=== PATIENT | male | born 1940 | race Caucasian/White ===

== ENCOUNTER → 2016-08-17 | Outpatient (CLI) | payer MEDICARE, BC ==
[2016-08-17 09:00] LABS: CH 30.7; HCT 43.6 % (39.0-53.0); HDW 2.62; MCHC 32.1 g/dL (31.0-37.0); MCV 93.4 fL (80.0-100.0); Mean Platelet Volume 7.8; RBC 4.68 m/uL (4.30-5.90); RDW 13.2 % (11.5-15.5); WBC 7.1 k/uL (3.8-10.6)
[2016-08-17 09:04] LABS: Appearance,Urine Clear (Clear); Bilirubin,Urine Negative (Negative); Glucose,Urine (UA) Negative (Negative); Ketones,Urine Negative (Negative); Leukocyte Esterase,Urine Negative (Negative); Nitrite,Urine Negative (Negative); Protein,Urine Trace (Negative); Specific Gravity,Urine 1.016 (1.001-1.035); UA Billing (MACRO vs. MICRO) CHEM; Urobilinogen,Urine <2.0 mg/dL (<2.0)
[2016-08-17 09:32] LABS: ALT 34 U/L (21-72); AST 26 U/L (17-59); Alkaline Phosphatase 103 U/L (38-126); Anion Gap 12 mmol/L; Blood Urea Nitrogen 23 mg/dL (9-20); Calcium 9.5 mg/dL (8.4-10.2); Carbon Dioxide 29 mmol/L (22-30); Chloride 105 mmol/L (98-107); Cholesterol 180 mg/dL (<200); Glucose 100 mg/dL (74-99); HDL Cholesterol 53 mg/dL (40-60); Non-African American GFR(MDRD) >60 (>60 ml/min/1.73 sqM); Potassium 4.8 mmol/L (3.5-5.1); Sodium 146 mmol/L (137-145); Total Bilirubin 0.9 mg/dL (0.2-1.3); Total Protein 7.6 g/dL (6.3-8.2); Triglycerides 81 mg/dL (<150)
== END | disposition home or self-care (01) ==
LOC: LABWHC1 08:31
PROVIDERS: ATTEND Internal Medicine
DX: C34.90 Malignant neoplasm of unspecified part of unspecified bronchus or lung (principal); C61 Malignant neoplasm of prostate; E78.5 Hyperlipidemia, unspecified
CPT/HCPCS: 36415; 80053; 80061; 81003; 85027

== ENCOUNTER 2016-08-30 08:42 | Day surgery (SDC) | payer MEDICARE, BC ==
[2016-08-24 11:13] VITALS: BMI 22.6
[~2016-08-30 08:42] MED LIST: LACTATED RINGERS 1,000 ML IV SCH; LIDOCAINE 1% 20 ML VIAL (10MG/ML) FOR IV START INTRADERMA PRN
[2016-08-30 09:29] VITALS: TEMP 97.5
[2016-08-30] MEDS ORDERED: LIDOCAINE 1% INJ 10MG/ML (20 ML MDV) ONE (09:42)
[2016-08-30] MEDS ORDERED: PROPOFOL 10 MG/ML 20 ML VIAL IV ONE (09:42)
--- NOTE | 2016-08-30 10:14 | P.PCN ---
Date of Procedure: 08/30/16 Procedure(s) Performed: Procedure: Total colonoscopy. Preoperative diagnosis screening for neoplasia. Postoperative diagnosis: Sigmoid diverticulosis with no evidence of acute diverticulitis, strictures, polyps or cancer. Preparation: HalfLytely prep. Sedation: Was provided by anesthesia. Brief clinical history: The patient is a 76-year-old male who is referred for this evaluation for screening for neoplasia age being his risk factor. He has history of lung cancer and prostate cancer. This is his first colonoscopy. He has no abdominal complaints, bleeding or anemia. Procedure: With the patient on his left lateral decubitus position and after informed consent and adequate sedation, the perianal area was inspected and it did not show any fissures or fistulas. There were no masses felt on digital rectal examination. The Olympus CFQ 160L video colonoscope was then inserted in the rectum in the usual fashion and advanced to the cecum. The preparation was poor especially in the sigmoid and left colon but I was able to clean thoroughly as I was withdrawing the endoscope. There was significant diverticulosis in the sigmoid but no evidence of acute diverticulitis or strictures. No polyps or tumors were seen. I retroflexed endoscope in the rectum before the endoscope was withdrawn. The patient tolerated the procedure well. Plan: The patient was reassured. He will follow up with you as planned. At his age I did not recommend further screening.
[2016-08-30 10:23] VITALS: RESP 18
[2016-08-30 10:40] VITALS: BP 162/77; PULSE 81
== END 2016-08-30 11:15 | disposition home or self-care (01) ==
LOC: ORWHC2ENDO 08:42
DX: Z12.11 Encounter for screening for malignant neoplasm of colon (principal); K57.30 Diverticulosis of large intestine without perforation or abscess without bleeding; E78.5 Hyperlipidemia, unspecified; Z85.46 Personal history of malignant neoplasm of prostate; Z85.118 Personal history of other malignant neoplasm of bronchus and lung; Z79.899 Other long term (current) drug therapy
CPT/HCPCS: J2001; J2704; G0121; 99153

== ENCOUNTER → 2016-12-22 | Outpatient (CLI) | payer MEDICARE, BC | END | disposition home or self-care (01) | LOC: LABWHC1 10:19 | PROVIDERS: ATTEND Urology | DX: C61 Malignant neoplasm of prostate (principal) | CPT/HCPCS: 36415; 84153 ==

== ENCOUNTER 2017-04-23 17:59 | Emergency (ER) | payer MEDICARE, BC ==
[2017-04-23 18:05] VITALS: BP 145/65; PULSE 74; RESP 16; TEMP 97.4
--- NOTE | 2017-04-23 18:36 | XR ---
EXAMINATION TYPE: XR hand complete LT DATE OF EXAM: 04/23/2017 CLINICAL HISTORY: Pain of the left hand TECHNIQUE: Frontal, lateral and oblique images of the left hand are obtained. COMPARISON: None. FINDINGS: There is no acute fracture/dislocation evident in the left hand. Small marginal osteophyte s, joint space narrowing and sclerosis are seen of the distal interphalangeal joints and first carpom etacarpal joint compatible with mild osteoarthropathy.. The overlying soft tissue appears unremarkab le. IMPRESSION: 1. There is no acute fracture or dislocation in the left hand. 2. Mild osteoarthropathy of the left hand.
--- NOTE | 2017-04-23 18:46 | ED ---
Upper Extremity HPI - General Chief Complaint: Extremity Injury, Upper Stated Complaint: LEFT HAND INJURY FROM FALL Time Seen by Provider: 04/23/17 18:08 Source: patient Mode of arrival: ambulatory Limitations: no limitations - History of Present Illness Initial Comments: 76-year-old male since emergency room complaining of left hand pain. Patient reports he was walking through the [place] and scaring is gone and his right hand and tripped over a stump and landed on his left hand. Patient states that he has some swelling over the second and third metacarpal. Fourth is range of motion in his fingers and wrist and hand. Denies any numbness or tingling. Denies any previous hand injuries. He reports he is right-handed. Denies any lacerations or abrasions of the hand.Patient denies any recent fever , chills, shortness of breath, chest pain, back pain, abdominal pain, nausea vomiting, numbness or tingling, dysuria or hematuria, constipation or diarrhea, headaches or visual changes, or any other current symptoms - Related Data Home Medications Medication Instructions Recorded Confirmed Doxazosin [Cardura] 4 mg PO HS 08/24/16 08/24/16 Multivitamin [Men's Multi-Vitamin] 1 each PO DAILY 08/24/16 08/24/16 Simvastatin [Zocor] 20 mg PO HS 08/24/16 08/24/16 Allergies Allergy/AdvReac Type Severity Reaction Status Date / Time No Known Allergies Allergy Verified 04/23/17 18:04 Review of Systems ROS Statement: Those systems with pertinent positive or pertinent negative responses have been documented in the HPI. ROS Other: All systems not noted in ROS Statement are negative. Past Medical History Past Medical History: Cancer, Hyperlipidemia, Prostate Disorder Additional Past Medical History / Comment(s): hx. lung cancer 1999-had chemo, hx. prostate cancer 2-3 yrs. ago-no tx. for- monitoring History of Any Multi-Drug Resistant Organisms: None Reported Past Surgical History: Appendectomy, Hernia Repair, Tonsillectomy Additional Past Surgical History / Comment(s): annalisa. inguinal hernia repair, left lobectomy, multiple skin grafts from huizar Past Anesthesia/Blood Transfusion Reactions: No Reported Reaction Past Psychological History: No Psychological Hx Reported Smoking Status: Former smoker Past Alcohol Use History: None Reported Past Drug Use History: None Reported - Past Family History Mother Family Medical History: No Reported History General Exam - General Exam Comments Initial Comments: well-appearing 76-year-old male. No distress. Limitations: no limitations General appearance: alert, in no apparent distress Head exam: Present: atraumatic, normocephalic, normal inspection Eye exam: Present: normal appearance, PERRL, EOMI. Absent: scleral icterus, conjunctival injection, periorbital swelling ENT exam: Present: normal exam, mucous membranes moist Neck exam: Present: normal inspection. Absent: tenderness, meningismus, lymphadenopathy Respiratory exam: Present: normal lung sounds bilaterally. Absent: respiratory distress, wheezes, rales, rhonchi, stridor Cardiovascular Exam: Present: regular rate, normal rhythm, normal heart sounds. Absent: systolic murmur, diastolic murmur, rubs, gallop, clicks GI/Abdominal exam: Present: soft, normal bowel sounds. Absent: distended, tenderness, guarding, rebound, rigid Extremities exam: Present: normal inspection, full ROM, normal capillary refill , other (minor swelling over left hand over 2-4 metacarpals. Full range of motion of fingers. ). Absent: tenderness, pedal edema, joint swelling, calf tenderness Back exam: Present: normal inspection Neurological exam: Present: alert, oriented X3, CN II-XII intact Psychiatric exam: Present: normal affect, normal mood Course Vital Signs 04/23/17 18:01 Temperature 97.4 F L Pulse Rate 74 Respiratory 16 Rate Blood Pressure 145/65 O2 Sat by Pulse 97 Oximetry Medical Decision Making - Medical Decision Making 76-year-old male since emergency room complaining of left hand pain. Patient reports he was walking [place] and scaring is gone and his right hand and tripped over a stump and landed on his left hand. Patient states that he has some swelling over the second and third metacarpal. Patient has some swelling over 204 metacarpal. Patient does have full range of motion. Patient xray shows no acute fracture. Patient placed in an JONAH wrap. Patient advised to take motrin or tylenol for pain, and follow up with PCP if any alarming signs or symptoms occur. - Radiology Data Radiology results: report reviewed No fracture or dislocation of left hand. Disposition Clinical Impression: Contusion of left hand Disposition: HOME SELF-CARE Condition: Good Instructions: Contusion in Adults (ED) Additional Instructions: Patient advised to apply ice to the hand as much as possible. Wear the Jonah wrap. Recommended following up with orthopedic if symptoms continue to persist after the next 2-3 days. Return to the emergency department if any alarming signs or symptoms occur. Referrals: Brian Winchester MD [Primary Care Provider] - 1-2 days Al Nguyen PAC [PHYSICIAN [facility]] - 1-2 days Time of Disposition: 18:45
== END 2017-04-23 18:52 | disposition home or self-care (01) ==
LOC: EC 17:59
DX: S60.222A Contusion of left hand, initial encounter (principal); E78.5 Hyperlipidemia, unspecified; Z87.891 Personal history of nicotine dependence; Z79.899 Other long term (current) drug therapy; Z85.118 Personal history of other malignant neoplasm of bronchus and lung; Z90.2 Acquired absence of lung [part of]; W18.09XA Striking against other object with subsequent fall, initial encounter; Y93.01 Activity, walking, marching and hiking
CPT/HCPCS: 99283

== ENCOUNTER → 2017-12-25 | Outpatient (CLI) | payer MEDICARE, BC | END | disposition home or self-care (01) | LOC: LABWHC1 08:50 | PROVIDERS: ATTEND Urology | DX: Z53.9 Procedure and treatment not carried out, unspecified reason (principal) ==

== ENCOUNTER → 2019-07-30 | Outpatient (CLI) | payer MEDICARE, BC ==
--- NOTE | 2019-07-30 13:41 | XR ---
EXAMINATION TYPE: XR lumbosacral spine min 4V DATE OF EXAM: 07/30/2019 CLINICAL HISTORY: Back pain. History of prostate cancer. TECHNIQUE: Frontal, lateral, and oblique images of the lumbar spine are obtained. COMPARISON: None FINDINGS: There are 5 lumbar type vertebral bodies identified. Rudimentary right 12th rib is inciden tally seen. There is ill-definition of the anterior inferior endplate of the L2 vertebral body. There is very mild compression of the superior endplate of L3. Intervertebral disc space narrowing is seen at L4-L5 and L5-S1 with facet arthropathy at multiple levels. There is diffuse osseous demineralizat ion. Overlying bowel gas slightly obscures visualization of the lumbar vertebral bodies. Extensive at herosclerosis of the abdominal aorta. IMPRESSION: 1. Age-indeterminate very mild compression deformity of L3 with vertebral body height loss of less th an 10%. 2. Poor definition of the inferior endplate of L2, which could relate to overlying bowel gas although this could be better evaluated with CT pelvis. 3. 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
--- NOTE | 2019-07-30 13:42 | XR ---
EXAMINATION TYPE: XR thoracic spine complete DATE OF EXAM: 07/30/2019 CLINICAL HISTORY: Back pain with history of prostate cancer. TECHNIQUE: Frontal, lateral, and swimmer's view of thoracic spine are obtained. COMPARISON: None. FINDINGS: There is a very mild levoscoliosis of the thoracolumbar junction. Diffuse osseous demineral ization is seen. Thoracic spine show satisfactory alignment without evidence of acute fracture or dis location. Multilevel intervertebral disc space narrowing is seen with very small anterior osteophytes . Vertebral body heights and disc space heights are preserved. Visualized ribs are unremarkable. Me diastinal clips are seen from presumed prior CABG. IMPRESSION: No acute fracture or dislocation is seen in the thoracic spine. Mild dextroscoliosis of the thoracolumbar junction, diffuse osseous demineralization and mild multilevel degenerative disc di sease of the thoracic spine.
== END | disposition home or self-care (01) ==
LOC: RADXRMAIN 12:00
PROVIDERS: ATTEND Internal Medicine
DX: C61 Malignant neoplasm of prostate (principal); M51.37 Other intervertebral disc degeneration, lumbosacral region; M51.34 Other intervertebral disc degeneration, thoracic region; M41.85 Other forms of scoliosis, thoracolumbar region; M81.0 Age-related osteoporosis without current pathological fracture; G95.29 Other cord compression; Z86.008 Personal history of in-situ neoplasm of other site
CPT/HCPCS: 72072; 72110

== ENCOUNTER → 2019-08-13 | Outpatient (CLI) | payer MEDICARE, BC ==
--- NOTE | 2019-08-13 10:30 | BD ---
EXAMINATION TYPE: Axial Bone Density DATE OF EXAM: 08/13/2019 COMPARISON: NONE CLINICAL HISTORY: Disorder of bone. Height: 65 inches Weight: 137 FRAX RISK QUESTIONS: Alcohol (3 or more units per day): no Family History (Parent hip fracture): no Glucocorticoids (More than 3mos): no (Ex: prednisone, prednisolone, methylprednisolone, dexamethasone, and hydrocortisone). History of Fracture in Adulthood: yes Secondary Osteoporosis: 1. Type 1 Diabetes: no 2. Hyperthyroidism: no 3. Menopause before 45: n/a 4. Malnutrition: no 5. Chronic liver disease: no Rheumatoid Arthritis: yes Current Tobacco Use: no RISK FACTORS HISTORY OF: Family History of Osteoporosis: unsure Active: yes Diet low in dairy products/other sources of calcium: somewhat Lost more than 2 inches in height since high school: yes Frequent falls: no Poor Health: no Hyperparathyroidism: no Adrenal Insufficiency: no MEDICATIONS: Prednisone or other steroids: no Thyroid Medications: no Osteoporosis Medications: no Additional Medications: simvastatin, doxazosin, multivitamin Additional History: reason for exam: disorder of the bone EXAM MEASUREMENTS: Bone mineral densitometry was performed using the Bin1 ATE System. Bone mineral density as measured about the Lumbar spine is: ----- L1-L4(G/cm2): 0.904 T Score Values are as follows: ----- L2: -2.9 ----- L3: -2.6 ----- L4: -1.8 ----- L1-L4: -2.3 Bone mineral density BASELINE Bone mineral density about the R hip (g/cm2): 0.714 Bone mineral density about the L hip (g/cm2): 0.633 T Score values are as follows: -----R Neck: -2.3 -----L Neck: -2.9 -----R Total: -1.9 -----L Total: -2.2 Bone mineral density BASELINE IMPRESSION: Osteoporosis (T Score less than -2.5). There is increased fracture risk and therapy is usually indicated based on age. Re-Screen 1-2 years. NOTE: T-SCORE=SD OF THE YOUNG ADULT MEAN.
== END | disposition home or self-care (01) ==
LOC: RADBDWWP 07:49
PROVIDERS: ATTEND Internal Medicine
DX: M81.0 Age-related osteoporosis without current pathological fracture (principal)
CPT/HCPCS: 77080

== ENCOUNTER → 2020-09-07 | Outpatient (CLI) | payer MEDICARE, BC ==
--- NOTE | 2020-09-08 14:35 | ECHOF ---
Referral Reason:R01.1 Cardiac murmus MEASUREMENTS -------- HEIGHT: 165.1 cm WEIGHT: 63.5 kg BP: IVSd: 1.3 cm (0.6 - 1.1) LVIDd: 4.2 cm (3.9 - 5.3) LVPWd: 1.6 cm (0.6 - 1.1) IVSs: 1.6 cm LVIDs: 3.6 cm LVPWs: 1.4 cm LAESV Index (A-L): 31.75 ml/m Ao Diam: 3.5 cm (2.0 - 3.7) AV Cusp: 1.4 cm (1.5 - 2.6) EPSS: 0.5 cm MV E Lai: 0.43 m/s MV DecT: 237 ms MV A Lai: 0.71 m/s MV E/A Ratio: 0.60 AV maxP.41 mmHg AV meanP.45 mmHg RAP: 5.00 mmHg RVSP: 40.98 mmHg MV EF SLOPE: 94.35 mm/s (70 - 150) MV EXCURSION: 12.75 mm (> 18.000) FINDINGS -------- Sinus rhythm. This was a technically good study. The left ventricular size is normal. There is mild concentric left ventricular hypertrophy. Overa ll left ventricular systolic function is normal with, an EF between 55 - 60 %. The right ventricle is normal in size. The right atrial size is normal. There is mild aortic stenosis present. Peak/mean gradient across the Aortic Valve is 9.41mmHg / 4.4 5mmHg. Mild mitral annular calcification present. Mild mitral regurgitation is present. Mild tricuspid regurgitation present. There is mild pulmonary hypertension. The right ventricular systolic pressure, as measured by Doppler, is 40.98mmHg. There is no pulmonic regurgitation present. The aortic root size is normal. There is no pericardial effusion. CONCLUSIONS -------- 1. The left ventricular size is normal. 2. There is mild concentric left ventricular hypertrophy. 3. Overall left ventricular systolic function is normal with, an EF between 55 - 60 %. 4. The right ventricle is normal in size. 5. The right atrial size is normal. 6. There is mild aortic stenosis present. 7. Peak/mean gradient across the Aortic Valve is 9.41mmHg / 4.45mmHg. 8. Mild mitral annular calcification present. 9. Mild mitral regurgitation is present. 10. Mild tricuspid regurgitation present. 11. There is mild pulmonary hypertension. 12. The right ventricular systolic pressure, as measured by Doppler, is 40.98mmHg. 13. The aortic root size is normal. 14. There is no pericardial effusion. ENGRAVER LETTERING: Heather Padgett RDCS
== END | disposition home or self-care (01) ==
LOC: RADECHMAIN 11:41
PROVIDERS: ATTEND Family Medicine
DX: I08.1 Rheumatic disorders of both mitral and tricuspid valves (principal); I27.20 Pulmonary hypertension, unspecified
CPT/HCPCS: 93306

== ENCOUNTER 2020-09-12 09:00 | Observation (INO) | payer MEDICARE, BC ==
[2020-09-12] MEDS ORDERED: ASPIRIN 81 MG PO STA (09:16)
--- NOTE | 2020-09-12 09:21 | ED ---
Chest Pain HPI - General Chief Complaint: Chest Pain Stated Complaint: chest pain Time Seen by Provider: 09/12/20 09:07 Source: patient Mode of arrival: wheelchair Limitations: no limitations - History of Present Illness Initial Comments: 80-year-old male with history of prostate cancer no current treatment, dyslipidemia, recently diagnosed hypertension without medication management, lung cancer in remission with previous right lobectomy presenting to the emergency department today for chief complaint of chest pain 1 week. Patient states she has had on and off discomfort of the right anterior chest for the past week. He states it is sharp in nature he states it comes and goes and is not currently present. He denies any chest pressure jaw pain and arm pain. Patient states he did see his primary care provider for an aching sensation of the right shoulder/chest wall and it was felt it was most likely a "strain". Patient denies any nausea vomiting fever cough congestion. Patient denies any back or abdominal pain. Pt states at times it radiates to the right side of neck, no current neck pain. He denies any leg swelling calf pain, hemoptysis, history of DVT, denies recent surgeries, pain with deep inspiration. Denies dyspnea. When asked if he presented today because his symptoms were worse he states he did not have any worsening chest discomfort but states that he felt more fatigued and tired than usual this morning and decided to come to the emergency department. Patient denies additional complaints. Pleasant, nontoxic appearing-no distress/diaphoresis. Patient is hard of hearing, forgot hearing aids at home. - Related Data Home Medications Medication Instructions Recorded Confirmed Doxazosin [Cardura] 4 mg PO HS 08/24/16 09/12/20 Multivitamin [Men's Multi-Vitamin] 1 each PO DAILY 08/24/16 09/12/20 Simvastatin [Zocor] 20 mg PO HS 08/24/16 09/12/20 Allergies Allergy/AdvReac Type Severity Reaction Status Date / Time No Known Allergies Allergy Verified 09/12/20 09:50 Review of Systems ROS Statement: Those systems with pertinent positive or pertinent negative responses have been documented in the HPI. ROS Other: All systems not noted in ROS Statement are negative. EKG Findings - EKG Comments: EKG Findings:: Ventricular rate 84 bpm, KS interval 146 ms, QRS duration 86 ms, QT/QTC 380/49 ms. This is normal sinus. There is no ST elevation or depression appreciated however there is significant artifact on the EKG itself. Past Medical History Past Medical History: Cancer, Hyperlipidemia, Prostate Disorder Additional Past Medical History / Comment(s): hx. lung cancer 1999-had chemo, hx. prostate cancer 2-3 yrs. ago-no tx. for-dr. rao. heart mur mur History of Any Multi-Drug Resistant Organisms: None Reported Past Surgical History: Appendectomy, Hernia Repair, Tonsillectomy Additional Past Surgical History / Comment(s): annalisa. inguinal hernia repair, left lobectomy, multiple skin grafts from [facility] Past Anesthesia/Blood Transfusion Reactions: No Reported Reaction Past Psychological History: No Psychological Hx Reported Smoking Status: Never smoker Past Alcohol Use History: None Reported Past Drug Use History: None Reported - Past Family History Mother Family Medical History: No Reported History General Exam - General Exam Comments Initial Comments: General: The patient is awake and alert, in no distress, and does not appear acutely ill. Eye: +3 mm pupils are equal, round and reactive to light, extra-ocular movements are intact. No nystagmus. There is normal conjunctiva bilaterally. No signs of icterus. Ears, nose, mouth and throat: There are moist mucous membranes and no oral lesions. Neck: The neck is supple, there is no tenderness or JVD. Cardiovascular: There is a regular rate and rhythm. No murmur, rub or gallop is appreciated. Respiratory: Lungs are clear to auscultation, respirations are non-labored, breath sounds are equal. No wheezes, stridor, rales, or rhonchi. Gastrointestinal: Soft, non-distended, non-tender abdomen without masses or organomegaly noted. There is no rebound or guarding present. Musculoskeletal: Normal ROM, no tenderness of the UE, I did feel crepitus when right shoulder was ranged, no pain to palpation of the right anterior chest wlal. Strength 5/5. Sensation intact. Radial and DP pulses equal bilaterally 2+. Neurological: A&O x 3. CN II-XII intact grossly, There are no obvious motor or sensory deficits. Coordination appears grossly intact. Speech is normal. Skin: Skin is warm and dry and no rashes or lesions are noted. No LE swelling, pain, or LE edema. Psychiatric: Cooperative, appropriate mood & affect, normal judgment. Limitations: no limitations Course Vital Signs 09/12/20 09/12/20 09/12/20 09:02 09:30 09:40 Temperature 98.1 F Pulse Rate 90 74 75 Respiratory 16 18 16 Rate Blood Pressure 193/90 187/99 173/96 O2 Sat by Pulse 98 98 98 Oximetry 09/12/20 10:15 Temperature Pulse Rate 72 Respiratory 18 Rate Blood Pressure 187/98 O2 Sat by Pulse 98 Oximetry Chest Pain MDM - MDM 80-year-old male presenting for chest discomfort 1 week. No current discomfort. EKG no acute findings. Initial troponin negative chest x-ray clear. Patient's lungs clear he does not appear distress he is not diaphoretic. Color testing negative he does deny any upper respiratory symptoms. Patient pain was not able to be reproduced with movement of the arm or palpation of the chest. At this time. Patient's age risk factors he'll be initiated on oral blood pressure medications as he is not currently prescribed them and admitted for monitoring/serial troponins. Patient agreeable to admission--Dr Zuniga is agreeable to care plan. Dr Kim accepted the admission. Disposition Clinical Impression: Chest discomfort, Fatigue Disposition: ADMITTED IP TO THIS [facility] Condition: Stable Is patient prescribed a controlled substance at d/c from ED?: No Referrals: Maria Del Rosario Maldonado MD [Primary Care Provider] - 1-2 days Time of Disposition: 10:31 Decision to Admit Reason: Admit from EC Decision Date: 09/12/20 Decision Time: 10:31
[2020-09-12 09:34] LABS: Basophils # (A) 0.1 k/uL (0-0.2); Basophils % (A) 1 %; Eosinophils # (A) 0.3 k/uL (0-0.7); Eosinophils % (A) 4 %; HCT 41.7 % (39.0-53.0); HGB 13.6 gm/dL (13.0-17.5); Lymphocytes # (A) 1.3 k/uL (1.0-4.8); Lymphocytes % (A) 17 %; MCH 30.3 pg (25.0-35.0); MCHC 32.7 g/dL (31.0-37.0); MCV 92.8 fL (80.0-100.0); Mean Platelet Volume 7.8; Monocytes # (A) 0.4 k/uL (0-1.0); Monocytes % (A) 6 %; Neutrophils # (A) 5.4 k/uL (1.3-7.7); Neutrophils % (A) 71 %; Platelet Count 326 k/uL (150-450); RBC 4.49 m/uL (4.30-5.90); RDW 13.4 % (11.5-15.5); WBC 7.5 k/uL (3.8-10.6)
[2020-09-12 09:43] LABS: Albumin 4.2 g/dL (3.5-5.0); Calcium 9.5 mg/dL (8.4-10.2); Magnesium 2.1 mg/dL (1.6-2.3); Potassium 4.2 mmol/L (3.5-5.1); Total Bilirubin 0.7 mg/dL (0.2-1.3); Total Protein 7.9 g/dL (6.3-8.2)
[2020-09-12 09:53] LABS: Prothrombin Time 10.3 sec (9.0-12.0)
[2020-09-12 10:01] LABS: Partial Thromboplastin Time 20.8 sec (22.0-30.0)
--- NOTE | 2020-09-12 10:11 | XR ---
EXAMINATION TYPE: XR chest 2V DATE OF EXAM: 09/12/2020 COMPARISON: NONE HISTORY: Shortness of breath TECHNIQUE: Frontal and lateral views of the chest are obtained. FINDINGS: Scattered senescent parenchymal changes noted. Hyperinflation compatible with COPD. No evidence for infiltrate. No evidence for atelectasis. Heart size is stable. Mediastinal structures are stable and grossly unremarkable. No evidence for hilar prominence. Degenerative changes dorsal spine. IMPRESSION: 1. No evidence for acute pulmonary disease.
[2020-09-12] MEDS ORDERED: NITROGLYCERIN SL TABS 0.4 MG TAB SUBLINGUAL PRN (10:24)
[2020-09-12] MEDS ORDERED: amLODIPine 2.5 MG TAB PO SCH (10:30)
[2020-09-12] MEDS ORDERED: NALOXONE 0.4 MG/ML 1 ML VIAL IV PRN (11:38)
[2020-09-12] MEDS ORDERED: ALPRAZolam 0.25 MG TAB PO PRN (11:38)
[2020-09-12] MEDS ORDERED: ACETAMINOPHEN TAB 325 MG TAB PO PRN (11:38)
[2020-09-12] MEDS ORDERED: HYDROcodone/APAP 5-325MG 1 EACH TAB PO PRN (11:38)
[2020-09-12] MEDS ORDERED: MELATONIN 3 MG TABLET PO PRN (11:38)
--- NOTE | 2020-09-12 12:48 | P.CRDCN ---
History of Present Illness Consult date: 09/12/20 Chief complaint: Palpitations/chest discomfort History of present illness: This is a very pleasant 80-year-old gentleman with a past medical history significant for hypertension and dyslipidemia and recent diagnosis of prostate cancer who presented to the hospital complaining of palpitations mainly. The patient describes intermittent episodes of palpitation without any symptoms of dizziness or lightheadedness or syncope. With the palpitation he experienced also what it seems to be chest discomfort. Because of that the patient decided to come to the emergency department. In the hospital the pressure has been elevated. The patient was started on amlodipine at 2.5 mg by mouth daily. The patient is not aware of any prior history of coronary artery disease or congestive heart failure or cardiac arrhythmia and never seen a rn surgical pcu. The EKG showed sinus rhythm without any significant ST or T-wave abnormalities. The chest x-ray showed no acute abnormalities. The first set of troponin came in to be unremarkable. The patient is not having any abdominal pain or abdominal discomfort. No symptoms of fever or chills. No cough or wheezing. He stated that the symptoms of palpitation and chest discomfort has getting worse lately on him and because of that he decided to come in to check the hospital. An echocardiogram from 2020 revealed normal left ventricle systolic function was evidence of mild aortic stenosis without any significant valvular abnormalities. Past Medical History Past Medical History: Cancer, Hyperlipidemia, Prostate Disorder Additional Past Medical History / Comment(s): hx. lung cancer 1999-had chemo, hx. prostate cancer 2-3 yrs. ago-no tx. for-dr. rao. heart [place] History of Any Multi-Drug Resistant Organisms: None Reported Past Surgical History: Appendectomy, Hernia Repair, Tonsillectomy Additional Past Surgical History / Comment(s): annalisa. inguinal hernia repair, left lobectomy, multiple skin grafts from [facility]izar Past Anesthesia/Blood Transfusion Reactions: No Reported Reaction Past Psychological History: No Psychological Hx Reported Smoking Status: Never smoker Past Alcohol Use History: None Reported Past Drug Use History: None Reported - Past Family History Mother Family Medical History: No Reported History Medications and Allergies Home Medications Medication Instructions Recorded Confirmed Type Doxazosin [Cardura] 4 mg PO HS 08/24/16 09/12/20 History Multivitamin [Men's Multi-Vitamin] 1 each PO DAILY 08/24/16 09/12/20 History Simvastatin [Zocor] 20 mg PO HS 08/24/16 09/12/20 History Allergies Allergy/AdvReac Type Severity Reaction Status Date / Time No Known Allergies Allergy Verified 09/12/20 09:50 Physical Exam Vitals: Vital Signs Temp Pulse Pulse Resp BP BP Pulse Ox 09/12/20 11:33 98.0 F 71 16 193/87 97 09/12/20 10:40 74 18 173/88 97 09/12/20 10:15 72 18 187/98 98 09/12/20 09:40 75 16 173/96 98 09/12/20 09:30 74 18 187/99 98 09/12/20 09:02 98.1 F 90 16 193/90 98 Intake and Output 09/11/20 09/12/20 09/12/20 22:59 06:59 14:59 Other: Weight 63.503 kg - Constitutional General appearance: no acute distress - Respiratory Respiratory: bilateral: CTA - Cardiovascular Rhythm: regular Heart sounds: normal: S1, S2 Results 09/12/20 09:25 09/12/20 09:25 Cardiac Enzymes 09/12/20 09/12/20 Range/Units 09:25 09:25 AST 30 (17-59) U/L Troponin I <0.012 (0.000-0.034) ng/mL Coagulation 09/12/20 Range/Units 09:25 PT 10.3 (9.0-12.0) sec APTT 20.8 L (22.0-30.0) sec CBC 09/12/20 Range/Units 09:25 WBC 7.5 (3.8-10.6) k/uL RBC 4.49 (4.30-5.90) m/uL Hgb 13.6 (13.0-17.5) gm/dL Hct 41.7 (39.0-53.0) % Plt Count 326 (150-450) k/uL Comprehensive Metabolic Panel 09/12/20 Range/Units 09:25 Sodium 142 (137-145) mmol/L Potassium 4.2 (3.5-5.1) mmol/L Chloride 105 (98-107) mmol/L Carbon Dioxide 30 (22-30) mmol/L BUN 23 H (9-20) mg/dL Creatinine 1.11 (0.66-1.25) mg/dL Glucose 102 H (74-99) mg/dL Calcium 9.5 (8.4-10.2) mg/dL AST 30 (17-59) U/L ALT 15 (4-49) U/L Alkaline Phosphatase 110 (38-126) U/L Total Protein 7.9 (6.3-8.2) g/dL Albumin 4.2 (3.5-5.0) g/dL Current Medications Generic Name Dose Route Start Last Admin Trade Name Freq PRN Reason Stop Dose Admin Acetaminophen 650 mg 09/12/20 11:38 Acetaminophen Tab 325 Mg Tab PO Q6HR PRN Mild Pain or Fever > 100.5 Hydrocodone Bitart/Acetaminophen 1 each 09/12/20 11:38 Hydrocodone/Apap 5-325mg 1 Each Tab PO Q4HR PRN Moderate Pain Alprazolam 0.25 mg 09/12/20 11:38 Alprazolam 0.25 Mg Tab PO Q6HR PRN Anxiety Amlodipine Besylate 2.5 mg 09/12/20 10:30 09/12/20 10:56 Amlodipine 2.5 Mg Tab PO 2.5 mg DAILY [facility] Administration Aspirin 325 mg 09/13/20 09:00 Aspirin 325 Mg Tab PO DAILY [facility] Atorvastatin Calcium 10 mg 09/12/20 21:00 Atorvastatin 10 Mg Tab PO HS [facility] Doxazosin Mesylate 4 mg 09/12/20 21:00 Doxazosin 4 Mg Tab PO HS [facility] Heparin Sodium (Porcine) 5,000 unit 09/12/20 16:00 Heparin Sodium,Porcine 5,000 Unit/Ml 1 Ml Vial SQ Q8HR [facility] Melatonin 3 mg 09/12/20 11:38 Melatonin 3 Mg Tablet PO HS PRN Insomnia Metoprolol Tartrate 25 mg 09/12/20 21:00 Metoprolol Tartrate 25 Mg Tab PO BID [facility] Multivitamins 1 each 09/13/20 09:00 Multivitamins, Thera 1 Each Tab PO DAILY [facility] Naloxone HCl 0.2 mg 09/12/20 11:38 Naloxone 0.4 Mg/Ml 1 Ml Vial IV Q2M PRN Opioid Reversal Nitroglycerin 0.4 mg 09/12/20 10:24 Nitroglycerin Sl Tabs 0.4 Mg Tab SUBLINGUAL Q5M PRN Chest Pain Intake and Output 09/11/20 09/12/20 09/12/20 22:59 06:59 14:59 Other: Weight 63.503 kg Patient Weight 09/13/20 06:59 Weight 63.503 kg 09/12/20 09:25 09/12/20 09:25 Assessment and Plan Assessment: Assessment #1 hypertension emergency #2 atypical chest discomfort could be related to elevated blood pressure #3 palpitation. Rule out cardiac arrhythmia #4 prostate cancer Plan #1 agree about starting the patient on amlodipine #2 agree about starting the patient on metoprolol #3 monitor the blood pressure #4 rule out acute coronary event #5 rule out cardiac arrhythmia like atrial fibrillation #6 follow up with the patient
--- NOTE | 2020-09-12 12:54 | P.HPIM ---
<Chemo Aviles - Last Filed: 09/12/20 12:44> History of Present Illness H&P Date: 09/12/20 Chief Complaint: chest pain with palpitations History of presenting illness: Patient is a very pleasant 80-year-old male with a past medical history of hypertension, hyperlipidemia, lung cancer resulting in chemotherapy and left lower lobectomy followed by remission, and active prostate cancer in which patient and his provider chose not to treat secondary to reports of slow-growing cancer. Patient presenting to [facility] today with a chief complaint of chest pain and palpitations. Patient reports he has been intermitt ently having pain to midsternal chest 1 week. Patient describes this pain as a strong achey sensation that waxes and waines and has been as strong as an 8/10 at times accompanied by reports that he can feel his heart beat really fast. Pt states that he also has pain in his neck and right shoulder, but reports this is chronic in nature and has had no changes in this change. Pt states that he had a routine echocardiogram with his health editor last week (09/07/20) and was told everything was good. Pt denies having any recent illness or exposure to known ill contacts, fevers, chills, diaphoresis, headache, lightheadedness, dizziness, changes in his vision or hearing, changes in her difficulties with speech or memory, sore throat or dysphagia, shortness of breath or dyspnea with exertion, abdominal pain, nausea, vomiting, having any changes in or difficulties with urinary or bowel function, or experiencing any numbness/tingling/weakness/swelling/pain in extremities. Patient and his daughter at the bedside stated that he decided to come into the hospital to have his chest pain evaluated today because of the feeling he felt in his chest this morning when his heart began beating really fast along with the pain in the middle of his chest seemed so strong, it honestly scared him. Patient was evaluated in the emergency department. EKG revealed normal sinus rhythm at 84 bpm with no noted T-wave or ST abnormalities present suggesting no signs of acute ischemia. Chest x-ray was negative for acute cardiopulmonary process. Lab work completed including CBC, BMP, coags, troponin, and pro-BNP which were all unremarkable. Patient admitted under our services for further cardiac workup. Review of systems: Pertinent positives and negatives as discussed in HPI, a complete review of systems was performed and all other systems are negative. Physical exam: General: non toxic, no distress, appears at stated age Derm: warm, dry Head: atraumatic, normocephalic, symmetric appearance. Patient hard of hearing. Neck: Neck supple, trachea midline, patient with large nonmobile submandibular lymph node to left lateral neck. Eyes: EOMI, no lid lag, anicteric sclera Mouth: no lip lesion, mucus membranes moist Cardiovascular: Regular rate and rhythm. Normal S1-S2. No murmur, gallop or rub noted. Posterior tibial pulses present bilaterally. Cap refill less than 2 seconds. Lungs: Respirations even, regular, and unlabored in room air. Lungs clear to auscultation bilaterally. No adventitious lung sounds noted and including Rales, rhonchi, crackles, or wheezes. Abdominal: Soft, nontender to palpation, no guarding, no appreciable organomegaly Ext: No gross muscle atrophy, no edema, no contractures. Movement and sensation of extremities intact. Neuro: GCS 15. Speech clear. CN II-XII grossly intact, no focal neuro deficits. Psych: Alert and oriented to person, time, place, and situation. He has a very pleasant and appropriate affect. Plan of care: Midsternal Chest Pain with Palpitations -Cardiology consult placed to Dr. Zaargoza. -EKG revealed normal sinus rhythm at 84 bpm with no noted ST or T-wave abnormalities. -Patient to be placed on continuous Telemetry monitoring to observe for possible arrhythmias -Initial troponin normal findings at less than 0.012. We will trend troponins every 3 hours 2 -ProBNP normal findings at 336. -Chest x-ray negative for acute cardiopulmonary process. -Cardiac diet -Daily aspirin and atorvastatin. -Lipid profile with a.m. labs. -We will obtain a TSH and d-dimer. -Echocardiogram completed 09/07/20 revealed an ejection fraction of 55-60% with mild left ventricular hypertrophy, mild pulmonary hypertension, and mild aortic stenosis. No significant valvular abnormalities. Hypertension, uncontrolled -Blood pressure upon arrival 193/90. -Monitor vital signs and Continue amlodipine 2.5 mg daily. -We will also start patient on metoprolol tartrate 25 mg twice a day. Hyperlipidemia -Continue daily medication regimen with atorvastatin 10 mg nightly. -Heart healthy diet. -Lipid profile with a.m. labs.- Prostate cancer -Patient and his PCP decided not to treat secondary to slow-growing cancer. -Patient to continue doxazosin 4 mg nightly. -DVT prophylaxis with heparin. Chronic issues: History of lung cancer resulting in left lower lobectomy in 2006 followed by remission. Patient being admitted to observation unit for anticipated less than 2 midnight stay for reports of midsternal chest pain with palpitations. CODE STATUS: DO NOT RESUSCITATE, patient NO to CPR but would like intubation, mechanical ventilation, vasopressors, and cardioversion if needed. DVT prophylaxis: Heparin Discussed with: Patient, RN, and patient's daughter. Anticipated discharge date: 1-[address]: Home A total of 45 minutes was spent on the care of this complex patient more than 50% of the time was spent in counseling and care coordination. Past Medical History Past Medical History: Cancer, Hyperlipidemia, Prostate Disorder Additional Past Medical History / Comment(s): hx. lung cancer 1999-had chemo, hx. prostate cancer 2-3 yrs. ago-no tx. for-dr. rao. heart [place] History of Any Multi-Drug Resistant Organisms: None Reported Past Surgical History: Appendectomy, Hernia Repair, Tonsillectomy Additional Past Surgical History / Comment(s): annalisa. inguinal hernia repair, left lobectomy, multiple skin grafts from [facility] Past Anesthesia/Blood Transfusion Reactions: No Reported Reaction Past Psychological History: No Psychological Hx Reported Smoking Status: Never smoker Past Alcohol Use History: None Reported Past Drug Use History: None Reported - Past Family History Mother Family Medical History: No Reported History Medications and Allergies Home Medications Medication Instructions Recorded Confirmed Type Doxazosin [Cardura] 4 mg PO HS 08/24/16 09/12/20 History Multivitamin [Men's Multi-Vitamin] 1 each PO DAILY 08/24/16 09/12/20 History Simvastatin [Zocor] 20 mg PO HS 08/24/16 09/12/20 History Allergies Allergy/AdvReac Type Severity Reaction Status Date / Time No Known Allergies Allergy Verified 09/12/20 09:50 Physical Exam Vitals: Vital Signs Temp Pulse Pulse Resp BP BP Pulse Ox 09/12/20 11:33 98.0 F 71 16 193/87 97 09/12/20 10:40 74 18 173/88 97 09/12/20 10:15 72 18 187/98 98 09/12/20 09:40 75 16 173/96 98 09/12/20 09:30 74 18 187/99 98 09/12/20 09:02 98.1 F 90 16 193/90 98 Intake and Output 09/11/20 09/12/20 09/12/20 22:59 06:59 14:59 Other: Weight 63.503 kg Results CBC & Chem 7: 09/12/20 09:25 09/12/20 09:25 Labs: Abnormal Lab Results - Last 24 Hours (Table) 09/12/20 09/12/20 Range/Units 09:25 09:25 APTT 20.8 L (22.0-30.0) sec BUN 23 H (9-20) mg/dL Glucose 102 H (74-99) mg/dL <Coleen Kim - Last Filed: 09/12/20 13:33> Physical Exam Osteopathic Statement: *. No significant issues noted on an osteopathic structural exam other than those noted in the History and Physical/Consult. Vitals: Vital Signs Temp Pulse Pulse Resp BP BP Pulse Ox 09/12/20 11:33 98.0 F 71 16 193/87 97 09/12/20 10:40 74 18 173/88 97 09/12/20 10:15 72 18 187/98 98 09/12/20 09:40 75 16 173/96 98 09/12/20 09:30 74 18 187/99 98 09/12/20 09:02 98.1 F 90 16 193/90 98 Intake and Output 09/11/20 09/12/20 09/12/20 22:59 06:59 14:59 Other: Weight 63.503 kg Results CBC & Chem 7: 09/12/20 09:25 09/12/20 09:25 Labs: Abnormal Lab Results - Last 24 Hours (Table) 09/12/20 09/12/20 Range/Units 09:25 09:25 APTT 20.8 L (22.0-30.0) sec BUN 23 H (9-20) mg/dL Glucose 102 H (74-99) mg/dL Assessment and Plan Assessment: Patient seen and examined independently. Patient was also seen by Chemo Aviles NP and case was discussed. I am in agreement with subjective, physical exam, assessment and plan as written above and amended below. He is currently chest pain free, describes palpations over the last week. NO hx of heart disease. He report echo on 09/07 that was reviewed with EF 55-60% and mild valvular disease General: non toxic, no distress, appears at stated age Derm: warm, dry Head: atraumatic, normocephalic, protrusion left mandibular area, non palpable Eyes: EOMI, no lid lag, anicteric sclera Mouth: no lip lesion, mucus membranes moist Cardiovascular: S1S2 reg, no murmur, positive posterior tibial pulse bilateral, No pain to palpation of the chest wall Lungs: CTA bilateral, no rhonchi, no rales , no accessory muscle use Abdominal: soft, nontender to palpation, no guarding, no appreciable organomegaly Ext: no gross muscle atrophy, no edema, no contractures Neuro: CN II-XI grossly intact, no focal neuro deficits Psych: Alert, oriented, appropriate affect
[2020-09-12] MEDS: HEPARIN SODIUM,PORCINE 5,000 UNIT/ML 1 ML VIAL SQ SCH ×2 (16:10→23:27)
[2020-09-12] MEDS ORDERED: DOXAZOSIN 4 MG TAB PO SCH (21:00)
[2020-09-12] MEDS ORDERED: ATORVASTATIN 10 MG TAB PO SCH (21:00)
[2020-09-12] MEDS: METOPROLOL TARTRATE 25 MG TAB PO SCH (23:27)
[2020-09-13 04:31] VITALS: RESP 18
[2020-09-13 08:31] VITALS: BP 175/83; PULSE 80; TEMP 97.7
--- NOTE | 2020-09-13 08:40 | P.PN ---
Subjective Progress Note Date: 09/13/20 Principal diagnosis: Hypertension emergency This is a pleasant 80-year-old gentleman who was admitted to the hospital with elevated blood pressure as well as chest discomfort and palpitation. He was started on Norvasc 2.5 mg by mouth daily and metoprolol 25 mg by mouth twice a day. The patient was seen today September [id number]. He is asymptomatic from a cardiovascular standpoint overview. The pressure is better but continues to be elevated. I'm going to increase the dose of Norvasc to 5 mg by mouth daily. Acute coronary syndrome was ruled out. Cardiac arrhythmia was ruled out so far. He might benefit from an event monitor as an outpatient. Objective - Vital Signs Vital signs: Vital Signs Temp 97.7 F 09/13/20 07:00 Pulse 80 09/13/20 07:00 Resp 18 09/13/20 07:00 BP 175/83 09/13/20 07:00 Pulse Ox 97 09/13/20 07:00 Intake & Output 09/12/20 09/13/20 09/13/20 18:59 06:59 18:59 Intake Total 1280 Balance 1280 Weight 63.503 kg Intake: Oral 1280 Other: Voiding Method Toilet # Voids 2 0 - Constitutional General appearance: Present: no acute distress - Respiratory Respiratory: bilateral: CTA - Cardiovascular Rhythm: regular Heart sounds: normal: S1, S2 - Labs CBC & Chem 7: 09/12/20 09:25 09/12/20 09:25 Labs: Abnormal Lab Results - Last 24 Hours (Table) 09/12/20 09/12/20 09/12/20 Range/Units 09:25 09:25 12:02 APTT 20.8 L (22.0-30.0) sec BUN 23 H (9-20) mg/dL Glucose 102 H (74-99) mg/dL TSH 0.090 L (0.350-5.500) uIU/mL Assessment and Plan Assessment: Assessment #1 hypertension emergency #2 atypical chest discomfort could be related to elevated blood pressure #3 palpitation. Rule out cardiac arrhythmia #4 prostate cancer Plan #1 continue the current medical regimen #2 increase the dose of Norvasc #3 rule out cardiac arrhythmia as an outpatient probably by event monitor
[2020-09-13] MEDS: HEPARIN SODIUM,PORCINE 5,000 UNIT/ML 1 ML VIAL SQ SCH (08:46)
[2020-09-13] MEDS: METOPROLOL TARTRATE 25 MG TAB PO SCH (08:47)
[2020-09-13] MEDS ORDERED: ASPIRIN 325 MG TAB PO SCH (09:00)
[2020-09-13] MEDS ORDERED: MULTIVITAMINS, THERA 1 EACH TAB PO SCH (09:00)
[2020-09-13] MEDS ORDERED: amLODIPine 5 MG TAB PO SCH (09:00)
[2020-09-13 09:17] LABS: Basophils # (A) 0.07 X 10*3/uL (0.00-0.10); Eosinophils # (A) 0.41 X 10*3/uL (0.04-0.35); Eosinophils % (A) 5.6 %; HCT 35.4 % (39.6-50.0); HGB 11.6 g/dL (13.0-17.0); Lymphocytes # (A) 1.97 X 10*3/uL (0.90-5.00); Lymphocytes % (A) 26.9 %; MCH 30.7 pg (27.0-32.0); MCHC 32.8 g/dL (32.0-37.0); MCV 93.7 fL (80.0-97.0); Mean Platelet Volume 10.7 fL (9.5-12.2); Monocytes # (A) 0.51 X 10*3/uL (0.20-1.00); Neutrophils # (A) 4.36 X 10*3/uL (1.80-7.70); Neutrophils % (A) 59.4 %; Platelet Count 313 X 10*3/uL (140-440); RBC 3.78 X 10*6/uL (4.40-5.60); RDW 13.7 % (11.5-14.5); WBC 7.33 X 10*3/uL (4.50-10.00)
[2020-09-13 09:42] LABS: African American GFR (CKD) 80.9 (60.0-200.0); Albumin 3.7 g/dL (3.80-4.90); Albumin/Globulin Ratio 1.76 (1.60-3.17); Anion Gap 6.4 mmol/L (4.00-12.00); Calcium 8.6 mg/dL (8.7-10.3); Carbon Dioxide 28.6 mmol/L (21.6-31.8); Globulin 2.1 g/dL (1.6-3.3); LDL Cholesterol,Calculated 80.8 mg/dL (0.0-131.0); Magnesium 1.8 mg/dL (1.5-2.4); Non-African American GFR(CKD) 69.8 (60.0-200.0); Total Bilirubin 0.4 mg/dL (0.2-1.2); Total Protein 5.8 g/dL (6.2-8.2); VLDL Calculation 13.2 mg/dL (5.00-40.00)
--- NOTE | 2020-09-13 12:36 | P.DS ---
<Chemo Aviles - Last Filed: 09/13/20 12:35> Providers Expected date of discharge: 09/13/20 Hospital Course: Discharge Diagnosis: Midsternal Chest Pain with Palpitations Subclinical Hyperthyroidism Hypertension, uncontrolled Hyperlipidemia Prostate cancer Chronic issues: History of lung cancer resulting in left lower lobectomy in 2006 followed by remission. Hospital Course: Patient is a very pleasant 80-year-old male with a past medical history of hypertension, hyperlipidemia, lung cancer resulting in chemotherapy and left lower lobectomy followed by remission, and active prostate cancer in which patient and his provider chose not to treat secondary to reports of slow-growing cancer. Patient presenting to [facility] with a chief complaint of chest pain and palpitations. Patient reported he has been intermittently having pain to midsternal chest 1 week. Patient describes this pain as a strong achey sensation that waxes and wains and has been as strong as an 8/10 at times accompanied by reports that he can feel his heart beat really fast. Patient and his daughter at the bedside stated that he decided to come into the hospital to have his chest pain evaluated today because of the feeling he felt in his chest this morning when his heart began beating really fast along with the pain in the middle of his chest seemed so strong, it honestly scared him. Patient was evaluated in the emergency department and admitted under our team with consult to cardiology for further cardiac workup. EKG revealed normal sinus rhythm at 84 bpm with no noted T-wave or ST abnormalities present suggesting no signs of acute ischemia. Echocardiogram completed on 09/07/20 revealed an ejection fraction of 55-60% with mild left ventricular hypertrophy, mild pulmonary hypertension, and mild aortic stenosis. Patient remained on telemetry monitoring with no noted arrhythmias. Chest x-ray was negative for acute cardiopulmonary process. Lab work completed including CBC, BMP, coags, and troponins, and pro-BNP which were all unremarkable. TSH was low at 0.090, however Free-T4 was within normal limits at 1.20 indicating subclinical hyperthyroidism. Patient was found to have significant hypertension with blood pressure 193/87 upon arrival. He was started on Norvasc 5 mg daily along with metoprolol 25 mg twice daily. Patient was seen and fully evaluated by trestle mechanic and acute coronary syndrome was ruled out. Cardiology recommending patient follow up outpatient as he would benefit from a event monitor to further rule out any cardiac arrhythmias. Physical exam: Patient was seen and fully evaluated at the bedside this morning. He reports feeling great. Denies having any further episodes of chest pain or palpitations since admission. Discussed results and plan of care with patient. All questions were answered. Patient denied having any further complaints or concerns at this time. Patient stable for discharge home. General: non toxic, no distress, appears at stated age Derm: warm, dry Head: atraumatic, normocephalic, symmetric appearance. Patient hard of hearing. Neck: Neck supple, trachea midline, patient with large nonmobile submandibular lymph node to left lateral neck. Eyes: EOMI, no lid lag, anicteric sclera Mouth: no lip lesion, mucus membranes moist Cardiovascular: Regular rate and rhythm. Normal S1-S2. No murmur, gallop or rub noted. Posterior tibial pulses present bilaterally. Cap refill less than 2 seconds. Lungs: Respirations even, regular, and unlabored in room air. Lungs clear to auscultation bilaterally. No adventitious lung sounds noted and including Rales, rhonchi, crackles, or wheezes. Abdominal: Soft, nontender to palpation, no guarding, no appreciable organomegaly Ext: No gross muscle atrophy, no edema, no contractures. Movement and sensation of extremities intact. Neuro: GCS 15. Speech clear. CN II-XII grossly intact, no focal neuro deficits. Psych: Alert and oriented to person, time, place, and situation. He has a very pleasant and appropriate affect. A total of 45 minutes of time were spent preparing this complex discharge summary. Patient Condition at Discharge: Stable Plan - Discharge Summary Discharge Rx Participant: No New Discharge Prescriptions: New Metoprolol Tartrate [Lopressor] 25 mg PO BID 30 Days #60 tab amLODIPine [Norvasc] 5 mg PO DAILY 30 Days #30 tab Continue Doxazosin [Cardura] 4 mg PO HS Simvastatin [Zocor] 20 mg PO HS Multivitamin [Men's Multi-Vitamin] 1 each PO DAILY Discharge Medication List Doxazosin [Cardura] 4 mg PO HS 08/24/16 [History] Multivitamin [Men's Multi-Vitamin] 1 each PO DAILY 08/24/16 [History] Simvastatin [Zocor] 20 mg PO HS 08/24/16 [History] Metoprolol Tartrate [Lopressor] 25 mg PO BID 30 Days #60 tab 09/13/20 [Rx] amLODIPine [Norvasc] 5 mg PO DAILY 30 Days #30 tab 09/13/20 [Rx] Follow up Appointment(s)/Referral(s): Maria Del Rosario Maldonado MD [Primary Care Provider] - 1-2 days Maxi Zaragoza MD [STAFF PHYSICIAN] - 1 Week Activity/Diet/Wound Care/Special Instructions: Activity: As tolerated. Diet: Heart healthy diet Special Instructions: Continue to take medications as prescribed. Please follow-up with Dr. Zaragoza as we discussed for placement of event monitor to further rule out underlying cardiac arrhythmias. Discharge Disposition: HOME SELF-CARE <Coleen Kim - Last Filed: 09/13/20 14:31> Providers Date of admission: 09/12/20 10:36 Attending physician: Coleen Kim DO Consults: 09/12/20 11:39 Consult Physician Routine Consulting Provider: Maxi Zaragoza Consult Reason/Comments: chest pain Do you want consulting provider notified?: Yes Consult Physician Routine Consulting Provider: Maxi Zaragoza Consult Reason/Comments: intermittent midsternal chest pain w/ palpitations Do you want consulting provider notified?: Yes Primary care physician: Maria Del Rosario Maldonado Hospital Course: Patient seen and examined independently. Patient was also seen by Chemo Aviles NP and case was discussed. I am in agreement with discharge diagnosis, hospital course, and physical exam as written above and amended below. Feeling much improved today. No additional episodes of palpitations overnight. No chest pain. No shortness of breath. No nausea or vomiting. General: non toxic, no distress, appears at stated age Derm: warm, dry Head: Large left-sided submandibular swelling Eyes: EOMI, no lid lag, anicteric sclera Mouth: no lip lesion, mucus membranes moist Cardiovascular: S1S2 reg, no murmur, positive posterior tibial pulse bilateral, Lungs: CTA bilateral, no rhonchi, no rales , no accessory muscle use Abdominal: soft, nontender to palpation, no guarding, no appreciable organomegaly Ext: no gross muscle atrophy, no edema, no contractures Neuro: CN II-XI grossly intact, no focal neuro deficits Psych: Alert, oriented, appropriate affect
== END 2020-09-13 15:18 | disposition home or self-care (01) ==
LOC: EC 09:00 → 6NMEDSUR 10:36
PROVIDERS: ADMIT Internal Medicine; ATTEND Internal Medicine
DX: R07.2 Precordial pain (principal); I16.1 Hypertensive emergency; I11.9 Hypertensive heart disease without heart failure; R00.2 Palpitations; C61 Malignant neoplasm of prostate; E78.5 Hyperlipidemia, unspecified; I10 Essential (primary) hypertension; I27.20 Pulmonary hypertension, unspecified; I35.0 Nonrheumatic aortic (valve) stenosis; E05.90 Thyrotoxicosis, unspecified without thyrotoxic crisis or storm; G89.29 Other chronic pain; M25.511 Pain in right shoulder; M54.2 Cervicalgia; H91.90 Unspecified hearing loss, unspecified ear; Z85.118 Personal history of other malignant neoplasm of bronchus and lung; Z79.899 Other long term (current) drug therapy; Z92.21 Personal history of antineoplastic chemotherapy; Z97.4 Presence of external hearing-aid; Z90.49 Acquired absence of other specified parts of digestive tract; Z90.2 Acquired absence of lung [part of]; Z98.890 Other specified postprocedural states; Z87.828 Personal history of other (healed) physical injury and trauma; Z66 Do not resuscitate
CPT/HCPCS: 36415; 71046; 80053; 80061; 83735; 83880; 84439; 84443; 84484; 85025; 85379; 85610; 85730; 87635; 93005; 96372; 99285

== ENCOUNTER → 2020-09-23 | Outpatient (CLI) | payer MEDICARE, BC ==
--- NOTE | 2020-09-23 14:32 | US ---
EXAMINATION TYPE: US thyroid st tissue head/neck DATE OF EXAM: 09/23/2020 COMPARISON: NONE CLINICAL HISTORY: 80-year-old male R22.1 left Neck Mass. Patient feels lump left neck. TECHNIQUE: Multiple sonographic images of the recliner obtained. FINDINGS: GLAND SIZE: Right Lobe: 4.6 x 1.6 x 1.5 cm Overall Parenchyma: heterogenous Left Lobe: 5.2 x 2.3 x 2.0 cm Overall Parenchyma: heterogeneous Isthmus Thickness: 0.5 cm NODULES RIGHT: # of nodules measured on right: 5 1. 0.8 X 0.6 x 0.5 cm upper pole mixed cystic and solid, hypoechoic nodule, which is wider than tara l, with smooth margins, without echogenic foci. Prior size: No previous 2. 1.3 X 0.9 x 0.8 cm upper pole mixed cystic and solid, primarily solid, hypoechoic nodule, which is wider than tall, with smooth margins, with possible punctate echogenic foci. Prior size: No Previous 3. 0.9 X 0.7 x 0.6 cm posterior mid pole solid or almost completely solid, hypoechoic nodule, which is wider than tall, with ill-defined margins, without echogenic foci. Prior size: No previous 4. 1.0 X 0.7 x 0.7 cm mid pole mixed cystic and solid, hypoechoic nodule, which is wider than tall, with smooth margins, without echogenic foci. Prior size: No previous 5. 0.7 X 0.7 x 0.6 cm lower pole mixed cystic and solid, hypoechoic nodule, which is wider than tara l, with smooth margins, without echogenic foci. Prior size: No previous LEFT: # of nodules measured on left: 4 1. 1.0 X 0.9 x 0.7 cm primarily solid, hypoechoic nodule, which is wider than tall, with smooth mar gins, without echogenic foci. Prior size: No previous 2. 2.8 X 2.4x 1.3 cm primarily solid heterogeneous, hypoechoic nodule, which is wider than tall, wit h smooth margins, with echogenic foci. Prior size: No previous 3. 0.8 X 0.7 x 0.7 cm lower pole posterior solid or almost completely solid, hypoechoic nodule, wit h smooth margins, without echogenic foci. Prior size: No previous 4. 2.0 cm solid or almost completely solid, isoechoic nodule, which is wider than tall, with ill-defi [place] margins, without echogenic foci. Unable to measure length and height due to body habitus Prior size: No previous ISTHMUS: # of nodules measured in the isthmus: 0 Bilateral neck scanned, no evidence of lymphadenopathy. 2 solid, hypervascular nodules seen at left-sided area of palpable lump. Possibly within the inferior parotid gland. 1) 3.0 x 2.3 x 1.4 cm 2) 1.5 x 1.6 x 0.8 cm IMPRESSION: 1. Multinodular goiter. 2. TR5, 2.8 cm left-sided dominant nodule for which biopsy is recommended. 3. An additional partially visualized 2 cm dominant nodule in the left lower pole. 4. Additional TR5, 1.3 cm nodule at the right upper pole. Biopsy can be considered. 5. 2 additional solid nodules along the left side of the neck at the palpable area, possibly within t he inferior left parotid gland measuring 3.0 m and 1.6 cm. These could represent enlarged lymph nodes or neoplasm arising from the parotid gland. Consideration to tissue sampling.
== END ==
LOC: RADUSWWP 09:24
PROVIDERS: ATTEND Family Medicine
DX: E04.2 Nontoxic multinodular goiter (principal)
CPT/HCPCS: 76536

== ENCOUNTER 2021-05-10 09:11 | Emergency (ER) | payer MEDICARE, BC ==
[2021-05-10 09:21] VITALS: BP 147/59; PULSE 74; RESP 18; TEMP 97.8
[2021-05-10] MEDS ORDERED: KETOROLAC 15 MG/ML 1 ML VIAL IM STA (09:42)
--- NOTE | 2021-05-10 09:49 | ED ---
General Adult HPI - General Chief complaint: Back Pain/Injury Stated complaint: Back Pain Time Seen by Provider: 05/10/21 09:20 Source: patient, family, RN notes reviewed, old records reviewed Mode of arrival: ambulatory Limitations: no limitations - History of Present Illness Initial comments: This is an 80-year-old male presents emergency department stating that recently he got out of bed and strained his lower back particularly on the right side. Patient states the pain continues anytime he moves. Patient states typically worse when he tries to get up after resting. Patient states he was taking Advil and it was helping but has doctor told him to stop Advil and start taking Tylenol. Patient states that was not helping at all. Patient denies any blunt trauma. Patient denies any fall. Patient denies any radiation down the legs. Patient denies any numbness or focal weakness. - Related Data Home Medications Medication Instructions Recorded Confirmed Doxazosin [Cardura] 4 mg PO HS 08/24/16 09/12/20 Multivitamin [Men's Multi-Vitamin] 1 each PO DAILY 08/24/16 09/12/20 Simvastatin [Zocor] 20 mg PO HS 08/24/16 09/12/20 Previous Rx's Medication Instructions Recorded Metoprolol Tartrate [Lopressor] 25 mg PO BID 30 Days #60 tab 09/13/20 amLODIPine [Norvasc] 5 mg PO DAILY 30 Days #30 tab 09/13/20 Cyclobenzaprine [Flexeril] 5 mg PO TID #15 tablet 05/10/21 Ibuprofen [Motrin] 400 mg PO Q6HR PRN #20 tab 05/10/21 Allergies Allergy/AdvReac Type Severity Reaction Status Date / Time No Known Allergies Allergy Verified 05/10/21 09:20 Review of Systems ROS Statement: Those systems with pertinent positive or pertinent negative responses have been documented in the HPI. ROS Other: All systems not noted in ROS Statement are negative. Past Medical History Past Medical History: Cancer, Hyperlipidemia, Prostate Disorder Additional Past Medical History / Comment(s): hx. lung cancer 1999-had chemo, hx. prostate cancer 2-3 yrs. ago-no tx. for-dr. rao. heart mur mur History of Any Multi-Drug Resistant Organisms: None Reported Past Surgical History: Appendectomy, Hernia Repair, Tonsillectomy Additional Past Surgical History / Comment(s): annalisa. inguinal hernia repair, left lobectomy, multiple skin grafts from huizar Past Anesthesia/Blood Transfusion Reactions: No Reported Reaction Past Psychological History: No Psychological Hx Reported Smoking Status: Never smoker Past Alcohol Use History: None Reported Past Drug Use History: None Reported - Past Family History Mother Family Medical History: No Reported History General Exam - General Exam Comments Initial Comments: GENERAL: Patient is well-developed and well-nourished. Patient is nontoxic and well- hydrated and is in mild distress. ENT: Neck is soft and supple. No significant lymphadenopathy is noted. Oropharynx is clear. Moist mucous membranes. Neck has full range of motion without eliciting any pain. EYES: The sclera were anicteric and conjunctiva were pink and moist. Extraocular mo vements were intact and pupils were equal round and reactive to light. Eyelids were unremarkable. PULMONARY: Unlabored respirations. Good breath sounds bilaterally. No audible rales rhonchi or wheezing was noted. CARDIOVASCULAR: There is a regular rate and rhythm without any murmurs gallops or rubs. ABDOMEN: Soft and nontender with normal bowel sounds. SKIN: Skin is clear with no lesions or rashes and otherwise unremarkable. NEUROLOGIC: Patient is alert and oriented x3. Cranial nerves II through XII are grossly intact. Motor and sensory are also intact. Normal speech, volume and content. Symmetrical smile. MUSCULOSKELETAL: Normal extremities with adequate strength and full range of motion. Patient has some mild tenderness to the right lower back. LYMPHATICS: No significant lymphadenopathy is noted PSYCHIATRIC: Normal psychiatric evaluation. Limitations: no limitations Course Vital Signs 05/10/21 05/10/21 09:18 10:20 Temperature 97.8 F Pulse Rate 74 Respiratory 18 18 Rate Blood Pressure 147/59 O2 Sat by Pulse 99 Oximetry Medical Decision Making - Medical Decision Making Lumbosacral x-ray shows no acute abnormality shows some degenerative disc disease. Patient received Toradol and felt much better after that. Disposition Clinical Impression: Strain of lumbar region Disposition: HOME SELF-CARE Condition: Good Instructions (If sedation given, give patient instructions): Low Back Strain (ED) Prescriptions: Cyclobenzaprine [Flexeril] 5 mg PO TID #15 tablet Ibuprofen [Motrin] 400 mg PO Q6HR PRN #20 tab PRN Reason: Pain Is patient prescribed a controlled substance at d/c from ED?: No Referrals: Ang Solis SN [Student Nurse] - 1-2 days Time of Disposition: 11:54
--- NOTE | 2021-05-10 11:45 | XR ---
EXAM TYPE: LUMBAR SPINE X RAY SERIES COMPARISON: NONE HISTORY: Pain TECHNIQUE: 4 views are submitted. FINDINGS: Alignment is anatomic. The pedicles are intact. The transverse processes are intact. There is diff use osteopenia. There are vascular calcifications. Hypertrophic and degenerative change of the spine. Facet arthropathy lower lumbar spine. Degenerative changes at L4-5 and L5-S1. IMPRESSION: 1. Diffuse osteopenia with multilevel facet arthropathy and degenerative disc disease.
== END 2021-05-10 12:15 | disposition home or self-care (01) ==
LOC: EC 09:11
DX: S39.012A Strain of muscle, fascia and tendon of lower back, initial encounter (principal); E78.5 Hyperlipidemia, unspecified; Z79.899 Other long term (current) drug therapy; X58.XXXA Exposure to other specified factors, initial encounter
CPT/HCPCS: 72110; 96372; 99283; J1885

== ENCOUNTER 2021-05-19 09:13 | Day surgery (SDC) | payer MEDICARE, BC ==
[2021-05-18 11:16] VITALS: BMI 22.2
[~2021-05-19 09:13] MED LIST changes: +FAMOTIDINE 20 MG/2 ML VIAL IV PRN; +LIDOCAINE 1% (10MG/ML) FOR IV START INTRADERMA PRN; -LIDOCAINE 1% 20 ML VIAL (10MG/ML) FOR IV START INTRADERMA PRN; +ONDANSETRON 4 MG/2 ML VIAL IVP PRN; +SCOPOLAMINE 1.5MG/72HR PATCH TRANSDERM PRN; +fentaNYL (PF) 50 MCG/ML 2 ML AMP IV PRN
[2021-05-19] MEDS ORDERED: ONDANSETRON 4 MG/2 ML VIAL ONE (10:07)
[2021-05-19] MEDS ORDERED: DEXAMETHASONE SOD PHOSPHATE 4 MG/ML 1 ML VIAL IVP ONE (10:19)
[2021-05-19] MEDS ORDERED: METOPROLOL TARTRATE 5 MG/5 ML VIAL IVP ONE (10:19)
[2021-05-19] MEDS ORDERED: fentaNYL (PF) 50 MCG/ML 2 ML AMP ONE (11:07)
[2021-05-19] MEDS ORDERED: SUCCINYLCHOLINE CHLORIDE 100 MG/5 ML SYR IV ONE (11:07)
[2021-05-19] MEDS ORDERED: ePHEDrine 50 MG/ML 1 ML AMP ONE (11:07)
[2021-05-19] MEDS ORDERED: PROPOFOL 10 MG/ML 20 ML VIAL IV ONE (11:07)
[2021-05-19] MEDS ORDERED: PHENYLEPHRINE-0.9% NACL SYG 1,000 MCG/10 ML SYRINGE ONE (11:07)
[2021-05-19] MEDS ORDERED: LIDOCAINE 1% INJ 10MG/ML (20 ML MDV) ONE (11:07)
[2021-05-19] MEDS ORDERED: LIDOCAINE 1% INJ 10MG/ML (20 ML MDV) SQ ONE ×2 (11:43)
[2021-05-19] MEDS ORDERED: BACITRACIN ZINC 500 UNIT/GM OINT 28.4 GM TUBE TOPICAL ONE (12:34)
--- NOTE | 2021-05-19 12:41 | P.OP ---
Date of Procedure: 05/19/21 Preoperative Diagnosis: Left parotid Warthin's tumors Postoperative Diagnosis: Same Procedure(s) Performed: Left superficial parotidectomy with facial nerve dissection and preservation and EMG facial nerve monitoring Anesthesia: BENIA Surgeon: Basil Suarez Estimated Blood Loss (ml): 5 Pathology: other (Left parotid lesion) Condition: stable Disposition: PACU Indications for Procedure: Is an 80-year-old white male who has a slowly enlarging left parotid lesion. Fine-needle aspiration showed evidence of [place]'s tumor Operative Findings: Approximately 3.5 cm left inferior parotid lesion well circumscribed and encapsulated Description of Procedure: The patient was brought in the operative suite and placed in a supine position. The patient underwent induction of general anesthesia with oral endotracheal intubation without difficulty. The table was turned 90 and patient positioned with a head donut. Patient was then prepped and draped in usual aseptic fashion after EMG facial nerve monitor was placed with the orbicularis isabela and orbicularis oculi monitored and working well with testing. 1% lidocaine with 1- 100,000 epinephrine was infused over the proposed left upper neck incision. This was left to work for 7 minutes vasoconstrictive effect. A slightly curvilinear transverse left upper neck incision was made over the mass itself. This was carried sharply through the skin and subcutaneous tissue and platysma layer and the mass was noted anterior to the sternocleidomastoid muscle but adjacent to it. The greater regular nerve was identified and preserved. The lower division of the facial nerve an inferior. The marginal mandibular branch of the facial nerve was identified superior to the mass and was dissected from the mass. The mass was then excised from the surrounding tissue including a sm all cuff of normal-appearing parotid tissue superiorly. The inferior aspect was in the neck and was at the inferior margin of the parotid gland and therefore no parotid tissue was on this margin. Dissection continued until the mass was excised from the surrounding tissue grossly entirely. Hemostasis was gained with bipolar cautery. Wound was irrigated with sterile normal saline copiously with excellent hemostasis noted. A 10-Kiswahili round drain was placed through separate stab incision inferiorly and was sutured to the skin with a 2-0 silk suture. The platysma and subcutaneous layers were closed with inverted interrupted 4-0 Vicryl suture skin closed with running locking 5-0 Prolene suture. Bacitracin ointment and sterile dressings were placed. The patient was then allowed to emerge from general anesthesia having tolerated procedure well and was extubated in the operating suite and transferred to postop recovery area in satisfactory condition. The lower division the facial nerve is intact grossly and stimulated well at 0.5 mA prior to closure.
[2021-05-19 12:51] VITALS: TEMP 98.3
[2021-05-19 13:46] VITALS: RESP 20
[2021-05-19 14:24] VITALS: BP 127/65; PULSE 87
== END 2021-05-19 14:40 | disposition home or self-care (01) ==
LOC: OR 09:13
PROVIDERS: ATTEND Otolaryngology
DX: D11.0 Benign neoplasm of parotid gland (principal)
CPT/HCPCS: 21012; 42415; J1100; J2405; J0690; J2001; J3010; J2370; J0330; J2704; 88307

== ENCOUNTER → 2022-01-26 | Outpatient (CLI) | payer MEDICARE, BC ==
[2022-01-26 14:19] LABS: Basophils # (A) 0.05 X 10*3/uL (0.00-0.10); Basophils % (A) 0.7 %; Eosinophils # (A) 0.37 X 10*3/uL (0.04-0.35); Eosinophils % (A) 5.4 %; HGB 11.5 g/dL (13.0-17.0); Immature Grans, Automated 0.1 %; Lymphocytes # (A) 1.88 X 10*3/uL (0.90-5.00); Lymphocytes % (A) 27.7 %; MCH 29.7 pg (27.0-32.0); MCHC 31.1 g/dL (32.0-37.0); MCV 95.6 fL (80.0-97.0); Mean Platelet Volume 10.3 fL (9.5-12.2); Monocytes # (A) 0.45 X 10*3/uL (0.20-1.00); Monocytes % (A) 6.6 %; NRBC Per 100 WBC 0 /100 WBCS (0.0-0.0); Neutrophils # (A) 4.03 X 10*3/uL (1.80-7.70); Neutrophils % (A) 59.5 %; Platelet Count 336 X 10*3/uL (140-440); RBC 3.87 X 10*6/uL (4.40-5.60); RDW 14.2 % (11.5-14.5); WBC 6.79 X 10*3/uL (4.50-10.00)
[2022-01-26 15:27] LABS: ALT 15 U/L (10-49); AST 27 U/L (14-35); African American GFR (CKD) 63.2 (60.0-200.0); Albumin 4.2 g/dL (3.8-4.9); Albumin/Globulin Ratio 1.31 (1.60-3.17); Alkaline Phosphatase 99 U/L (41-126); BUN/Creat Ratio 18.36 Ratio (12.00-20.00); Blood Urea Nitrogen 22.4 mg/dL (9.0-27.0); Calcium 9.3 mg/dL (8.7-10.3); Carbon Dioxide 27.5 mmol/L (20.0-27.5); Chloride 105 mmol/L (96-109); Globulin 3.2 g/dL (1.6-3.3); Glucose 95 mg/dL (70-110); Non-African American GFR(CKD) 54.5 (60.0-200.0); Sodium 143 mmol/L (135-145); Total Protein 7.4 g/dL (6.2-8.2)
[2022-01-26 15:46] LABS: Chol/HDL Ratio 2.62 Ratio
== END | disposition home or self-care (01) ==
LOC: LABWHC1 08:41
PROVIDERS: ATTEND Family Medicine
DX: Z00.00 Encounter for general adult medical examination without abnormal findings (principal); I10 Essential (primary) hypertension; E78.5 Hyperlipidemia, unspecified
CPT/HCPCS: 36415; 80053; 80061; 83721; 84443; 85025

== ENCOUNTER → 2023-06-13 | Outpatient (CLI) | payer MEDICARE, BC ==
[2023-06-13 18:12] LABS: Basophils # (A) 0.05 X 10*3/uL (0.00-0.10); Basophils % (A) 0.6 %; Eosinophils # (A) 0.24 X 10*3/uL (0.04-0.35); Eosinophils % (A) 2.9 %; HCT 37.2 % (39.6-50.0); HGB 11.6 g/dL (13.0-17.0); Lymphocytes # (A) 1.55 X 10*3/uL (0.90-5.00); Lymphocytes % (A) 18.7 %; MCHC 31.2 g/dL (32.0-37.0); MCV 96.1 FL (80.0-97.0); Monocytes # (A) 0.56 X 10*3/uL (0.20-1.00); Monocytes % (A) 6.7 %; NRBC Per 100 WBC 0 X 10*3/uL (0.00-0.01); Neutrophils # (A) 5.89 X 10*3/uL (1.80-7.70); Neutrophils % (A) 70.9 %; Platelet Count 440 X 10*3/uL (140-440); RBC 3.87 X 10*6/uL (4.40-5.60); RDW 14.5 % (11.5-14.5); WBC 8.31 X 10*3/uL (4.50-10.00)
[2023-06-13 20:47] LABS: BUN/Creat Ratio 15.08 Ratio (12.00-20.00); Blood Urea Nitrogen 18.1 mg/dL (9.0-27.0); Chloride 104 mmol/L (96-109); Glucose 100 mg/dL (70-110); Potassium 5.1 mmol/L (3.5-5.5); Sodium 141 mmol/L (135-145)
[2023-06-13 20:48] LABS: ALT 12 U/L (10-49); AST 20 U/L (14-35); Albumin 4.2 g/dL (3.8-4.9); Albumin/Globulin Ratio 1.56 Ratio (1.60-3.17); Alkaline Phosphatase 102 U/L (41-126); Calcium 9.7 mg/dL (8.7-10.3); Carbon Dioxide 28.2 mmol/L (21.6-31.8); Globulin 2.7 g/dL (1.6-3.3); Total Bilirubin 0.3 mg/dL (0.3-1.2); Total Protein 6.9 g/dL (6.2-8.2)
== END | disposition home or self-care (01) ==
LOC: LABWHC1 10:11
PROVIDERS: ATTEND Family Medicine
DX: I10 Essential (primary) hypertension (principal); E05.90 Thyrotoxicosis, unspecified without thyrotoxic crisis or storm; M81.0 Age-related osteoporosis without current pathological fracture; D68.9 Coagulation defect, unspecified
CPT/HCPCS: 36415; 80053; 82306; 84443; 85025

== ENCOUNTER → 2025-02-14 | Outpatient (CLI) | payer MEDICARE, OTHER ==
--- NOTE | 2025-02-14 16:42 | CT ---
EXAMINATION TYPE: CT chest wo con DATE OF EXAM: 02/14/2025 COMPARISON: 05/06/2016 CLINICAL INDICATION: Male, 84 years old with history of C34.12 MALIGNANT NEOPLASM OF UPPER LOBE, LEFT BRON; PHH, lung cancer upper lobe TECHNIQUE: CT scan of the thorax is performed without IV contrast. CT DLP: [address] CTDI: mGy Automated exposure control for dose reduction was used. FINDINGS: LUNGS: Hyperinflation compatible with COPD. Diminutive left lung relative to the right and this likel y reflects partial lobectomy change. Correlate clinically. Small focal calcified pleural plaques in t he left lower lobe. No recurrent or residual mass identified within either lung. There is no pleural effusion or pneumothorax seen. The tracheobronchial tree is patent. MEDIASTINUM: Lack of IV contrast is noted to limit evaluation for mediastinal and especially hilar ad enopathy. There are no definitive greater than 1 cm hilar or mediastinal lymph nodes. No cardiomega ly or pericardial effusion is seen. HEART: Cardiomegaly is demonstrated. No significant coronary artery calcifications. OTHER: No additional significant abnormality is seen. IMPRESSION: No evidence for residual or recurrent mass. Follow-up recommendations for incidental pulmonary nodules are per [employer] or [employer]. [facility], , 02/14/2025 4:39 PM
== END | disposition home or self-care (01) ==
LOC: RADCTMAIN 16:19
PROVIDERS: ATTEND Internal Medicine Hematology & Oncology
DX: C34.12 Malignant neoplasm of upper lobe, left bronchus or lung (principal); I10 Essential (primary) hypertension; D64.89 Other specified anemias; C61 Malignant neoplasm of prostate; E78.5 Hyperlipidemia, unspecified
CPT/HCPCS: 71250

== ENCOUNTER 2025-02-18 06:06 | Day surgery (SDC) | payer MEDICARE, OTHER ==
[2025-02-14 08:49] VITALS: BMI 20.2
[2025-02-18] MEDS: IV FLUID CONTINUATION 1,000 ML IV ONE (06:49)
[2025-02-18 06:52] VITALS: TEMP 97.1
[2025-02-18] MEDS: LACTATED RINGERS 1,000 ML IV SCH (07:03)
[2025-02-18] MEDS ORDERED: PROPOFOL 10 MG/ML 20 ML VIAL IV ONE (07:04)
[2025-02-18] MEDS ORDERED: LIDOCAINE 1% INJ 10MG/ML (20 ML MDV) ONE (07:04)
[2025-02-18 07:37] VITALS: RESP 14
[2025-02-18 07:47] VITALS: BP 123/67; PULSE 65
[2025-02-18 09:03] LABS: Basophils # (A) 0.01 10*3/uL (0.00-0.10); Basophils % (A) 0.1 %; Eosinophils # (A) 0.37 10*3/uL (0.04-0.35); Eosinophils % (A) 3.5 %; HCT 27.1 % (39.6-50.0); HGB 8.6 g/dL (13.0-17.0); Lymphocytes # (A) 2.84 10*3/uL (0.90-5.00); Lymphocytes % (A) 27.0 %; MCH 35.5 pg (27.0-32.0); MCHC 31.7 g/dL (32.0-37.0); MCV 112.0 fL (80.0-97.0); Monocytes # (A) 0.23 10*3/uL (0.20-1.00); Monocytes % (A) 2.2 %; Neutrophils # (A) 6.97 10*3/uL (1.80-7.70); Neutrophils % (A) 66.2 %; Platelet Count 173 10*3/uL (140-440); RBC 2.42 10*6/uL (4.40-5.60); RDW 16.9 % (11.5-14.5); WBC 10.52 10*3/uL (4.50-10.00)
[2025-02-18 10:07] LABS: Anisocytosis (M) Present; Poikilocytosis (M) Present
--- NOTE | 2025-02-18 12:49 | OP ---
OPERATIVE REPORT DATE OF SERVICE : 02/18/2025 PREOPERATIVE DIAGNOSIS: Macrocytic anemia. POSTOPERATIVE DIAGNOSIS: Macrocytic anemia. PROCEDURE: Bone marrow aspirate and biopsy. SITE: Right iliac crest. ANESTHESIA: Local with IV systemic sedation. PROCEDURE IN DETAIL: Utilizing sterile technique, the skin overlying the right iliac crest was prepared with Betadine and alcohol. After adequate sterile draping, a size 11 x 4 inch [employer] needle was utilized to access the periosteum with ease at a total of 5 mL of aspirate and had crossed 1 cm bone core biopsies were obtained. The patient tolerated the procedure well. There was no immediate procedure related complication. TOTAL BLOOD LOSS: Less than 1 mL. RESULTS: Pending. MMODL / IJN: [id number] /
== END 2025-02-18 08:10 | disposition home or self-care (01) ==
LOC: OR 06:06
PROVIDERS: ATTEND Internal Medicine Hematology & Oncology
DX: D53.9 Nutritional anemia, unspecified (principal); C34.12 Malignant neoplasm of upper lobe, left bronchus or lung; C61 Malignant neoplasm of prostate; J43.9 Emphysema, unspecified; M12.9 Arthropathy, unspecified; E78.5 Hyperlipidemia, unspecified; I10 Essential (primary) hypertension; M54.50 Low back pain, unspecified; Z79.899 Other long term (current) drug therapy
CPT/HCPCS: 85025; 85045; 38222; J2003; J2704